=== PATIENT | female | born 1980 | race Caucasian/White ===

== ENCOUNTER → 2024-06-05 09:00 | Outpatient (REF) | payer OTHER, SELFPAY | LOC: HWWDC 09:00 | PROVIDERS: ATTENDING PHYSICIAN Nurse Practitioner Adult Health | DX: Z12.31 Encounter for screening mammogram for malignant neoplasm of breast (principal) | CPT/HCPCS: 77063; 77067 ==

== ENCOUNTER → 2024-06-18 09:28 | Outpatient (REF) | payer OTHER, SELFPAY | LOC: WDC 09:28 | PROVIDERS: ATTENDING PHYSICIAN Nurse Practitioner Adult Health | DX: R92.8 Other abnormal and inconclusive findings on diagnostic imaging of breast (principal) | CPT/HCPCS: 76642 ==

== ENCOUNTER → 2024-12-12 12:04 | Outpatient (REF) | payer OTHER, SELFPAY | LOC: HWRAD 12:04 | PROVIDERS: ATTENDING PHYSICIAN Nurse Practitioner Adult Health | DX: M25.511 Pain in right shoulder (principal) | CPT/HCPCS: 73030 ==

== ENCOUNTER → 2025-06-06 08:48 | Outpatient (REF) | payer OTHER, SELFPAY | LOC: HWWDC 08:48 | PROVIDERS: ATTENDING PHYSICIAN Nurse Practitioner Adult Health | DX: Z12.31 Encounter for screening mammogram for malignant neoplasm of breast (principal) | CPT/HCPCS: 77063; 77067 ==